=== PATIENT | male | born 1940 | race Caucasian/White ===

== ENCOUNTER 2016-11-01 16:30 | Emergency (ER) | payer MEDICARE, OTHER ==
[2016-11-01 16:43] VITALS: BP 124/74
[2016-11-01] MEDS ORDERED: Sodium Chloride 0.9% 10 ML Syringe FLUSH PRN ×2 (17:06→19:04)
--- NOTE | 2016-11-01 17:14 | EDM.PDOC ---
ED HISTORY OF PRESENT ILLNESS - General Chief Complaint: Chest Pain Stated Complaint: BACK PN, CHEST PN Time Seen by Provider: 11/01/16 16:45 Source of Information: Reports: Patient History Limitations: Reports: No limitations - History of Present Illness INITIAL COMMENTS - FREE TEXT/NARRATIVE: Patient is a 76-year-old male who presents to the ED complaining of sudden onset of mid thoracic back discomfort that radiated into his chest bilaterally described as achy sensation rated 4/10 at its peak. Patient states he was sitting in the recliner when this discomfort occurred. Patient states with onset of discomfort he did not become dizzy, short of breath, diaphoretic, lightheaded, or have radiation of the discomfort up into his neck or arms bilaterally. States symptoms resolved quickly. Patient does not recall any recent activities that could cause discomfort. He has no prior history of similar symptoms. Patient has a history of non-Hodgkin's lymphoma, CLL, DVT, HTN, hypercholestermia, and prostate CA. Patient is currently taking imbruvica an kinase inhibitor for NHL and CLL. Timing/Duration: Reports: Resolved prior to arrival Severity: mild Location, General: Reports: chest, back Quality: Reports: Ache Improves with: Reports: None Worsens with: Reports: None Context, General: Reports: Other (none stated) Associated Symptoms (General): Reports: chest pain, loss of appetite, rash ( petechial rash over his whole body. ). 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) (none stated) - Related Data Allergies/ADRs: Allergies Allergy/AdvReac Type Severity Reaction Status Date / Time bendamustine Allergy Anaphylactic Verified 03/28/16 10:55 Shock Penicillins Allergy Hives Verified 03/28/16 10:55 Home Meds: Home Meds Allopurinol [Zyloprim] 300 mg PO DAILY 11/01/16 [History] Doxycycline Hyclate 100 mg PO BID 11/01/16 [History] Escitalopram [Lexapro] 20 mg PO DAILY 11/01/16 [History] Mupirocin Cream [Bactroban Crm] 1 applic TRDERM BID 11/01/16 [History] Omeprazole 20 mg PO DAILY 11/01/16 [History] Ondansetron HCl [Zofran] 8 mg PO TID PRN 11/01/16 [History] Prednisone [IJD: Prednisone] 5 mg PO DAILY 11/01/16 [History] Tobramycin Sulf/Dexamethasone [IJP: Tobradex Ophth Susp] 5 ml EYEBOTH .EVERY 4 HOURS 11/01/16 [History] Past Medical History Gastrointestinal History: Reports: Hemorrhoids Genitourinary History: Reports: Other (see below) Other Genitourinary History: prostrate removed because of cancer Musculoskeletal History: Reports: Gout, Other (see below) Other Musculoskeletal History: 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; pt is unaware of this Psychiatric History: Reports: Depression Oncologic (Cancer) History: Reports: Non-Hodgkin's Lymphoma - Infectious Disease History Infectious Disease History: Reports: MRSA - Past Surgical History HEENT Surgical History: Reports: Cataract surgery GI Surgical History: Reports: Cholecystectomy Social & Family History - Tobacco Use Smoking Status *Q: Former Smoker Month Tobacco Last Used: 25 yrs Second Hand Smoke Exposure: No - Caffeine Use Caffeine Use: Reports: Coffee - Alcohol Use Days Per Week of Alcohol Use: 0 - Recreational Drug Use Recreational Drug Use: No ED ROS GENERAL - Review of Systems Review Of Systems: See Below Constitutional: Reports: malaise, fatigue, decreased appetite. Denies: fever, chills, weakness HEENT: Reports: No symptoms Respiratory: Denies: shortness of breath, cough, sputum Cardiovascular: Denies: Chest pain, Dyspnea on exertion, Edema, Lightheadedness , Orthopnea, Palpitations, PND, Syncope GI/Abdominal: Denies: Abdominal pain, Black stool, Bloody stool, Constipation, Diarrhea, Decreased appetite, Distension, Hematemesis, Hematochezia, Melena, Nausea, Vomiting : Denies: discharge, dysuria, flank pain, frequency, hematuria, pain, urgency , urinary retention Musculoskeletal: Reports: back pain Skin: Reports: rash (Petechial rash over his body) Neurological: Reports: no symptoms ED EXAM, GENERAL - Physical Exam Exam: See Below Exam Limited By: No limitations General Appearance: alert, WD/WN, no apparent distress Eye Exam: bilateral eye: EOMI, PERRL Ears: hearing grossly normal Nose: normal inspection, normal mucosa, no blood Throat/Mouth: Normal inspection, Normal oropharynx, Normal voice, No airway compromise Neck: normal inspection, supple Respiratory/Chest: no respiratory distress, lungs clear, normal breath sounds, no accessory muscle use, chest non-tender Cardiovascular: normal peripheral pulses, regular rate, rhythm, no murmur Peripheral Pulses: 2+: radial (L) GI/Abdominal: normal bowel sounds, soft, non tender, no organomegaly, no distention, no abnormal bruit, no mass Back Exam: normal inspection, full range of motion. No: CVA tenderness (L), CVA tenderness (R) Extremities: normal inspection, non-tender, no pedal edema Neurological: alert, oriented, CN II-XII intact, normal cognition, no motor/ sensory deficits Psychiatric: normal affect, normal mood Skin Exam: Warm, Dry, Intact, Normal color, Petechiae (Over his whole body) Course - Vital Signs Last Recorded V/S: Last Vital Signs Temp 97.2 F 11/01/16 16:41 Pulse 68 11/01/16 16:41 Resp 14 11/01/16 16:41 BP 124/74 11/01/16 16:41 Pulse Ox 93 L 11/01/16 16:41 - Orders/Labs/Meds Orders: Active Orders 24 hr Category Date Time Status EKG Documentation Completion [RC] STAT Care 11/01/16 17:05 Active Peripheral IV Care [RC] . DIRECTED Care 11/01/16 17:06 Active Chest 1V Frontal [CR] Stat Exams 11/01/16 17:05 Taken Sodium Chloride 0.9% [Normal Saline] 1,000 ml Med 11/01/16 17:15 Active IV ASDIRECTED Sodium Chloride 0.9% [Normal Saline] 100 ml Med 11/01/16 19:15 Active IV ASDIRECTED Sodium Chloride 0.9% [Saline Flush] Med 11/01/16 17:06 Active 10 ml FLUSH ASDIRECTED PRN Sodium Chloride 0.9% [Saline Flush] Med 11/01/16 19:04 Active 10 ml FLUSH ONETIME PRN Peripheral IV Insertion Adult [OM.PC] Stat Oth 11/01/16 17:06 Ordered Medication Orders Sodium Chloride (Normal Saline) 1,000 mls @ 75 mls/hr IV ASDIRECTED [facility] Last Admin: 11/01/16 17:57 Dose: 75 mls/hr Sodium Chloride (Normal Saline) 100 mls @ 65 mls/hr IV ASDIRECTED CARMEN Last Admin: 11/01/16 19:58 Dose: 65 mls/hr Sodium Chloride (Saline Flush) 10 ml FLUSH ASDIRECTED PRN PRN Reason: Keep Vein Open Last Admin: 11/01/16 17:45 Dose: 10 ml Sodium Chloride (Saline Flush) 10 ml FLUSH ONETIME PRN PRN Reason: IV FLUSH Last Admin: 11/01/16 19:48 Dose: 10 ml Labs: Laboratory Tests 11/01/16 11/01/16 11/01/16 Range/Units 17:53 17:53 17:53 WBC 3.63 L (4.23-9.07) K/mm3 RBC 3.05 L (4.63-6.08) M/mm3 Hgb 9.9 L (13.7-17.5) gm/L Hct 31.1 L (40.1-51.0) % MCV 102.0 H (79.0-92.2) fl MCH 32.5 H (25.7-32.2) pg MCHC 31.8 L (32.2-35.5) g/dl RDW Std Deviation 52.2 H (35.1-43.9) fL Plt Count 44 L (163-337) K/mm3 MPV 12.0 (9.4-12.3) fl Neut % (Auto) 32.8 L (34.0-67.9) % Lymph % (Auto) 56.5 H (21.8-53.1) % [place] % (Auto) 8.5 (5.3-12.2) % Eos % (Auto) 0.8 (0.8-7.0) Baso % (Auto) 1.1 (0.1-1.2) % Neut # 1.19 L (1.78-5.38) K/mm3 Lymph # 2.05 (1.32-3.57) K/mm3 [place] # 0.31 (0.30-0.82) K/mm3 Eos # 0.03 L (0.04-0.54) K/mm3 Baso # 0.04 (0.01-0.08) K/mm3 Manual Slide Review Abnormal smear PT 11.7 (8.0-13.0) SECONDS INR 1.07 APTT (22-36) SECONDS D-Dimer, Quantitative (0.19-0.59) mg/L Sodium 143 (136-145) mEq/L Potassium 4.3 (3.5-5.1) mEq/L Chloride 108 H (98-107) mEq/L Carbon Dioxide 31 (21-32) mEq/L Anion Gap 8.3 (5-15) BUN 15 (7-18) mg/dL Creatinine 1.3 (0.7-1.3) mg/dL Est Cr Clr Drug Dosing 53.10 mL/min Estimated GFR (MDRD) 54 (>60) mL/min BUN/Creatinine Ratio 11.5 L (14-18) Glucose 93 (83-115) mg/dL Calcium 8.3 L (8.5-10.1) mg/dL Total Bilirubin 0.8 (0.2-1.0) mg/dL AST 20 (15-37) U/L ALT 12 L (16-63) U/L Alkaline Phosphatase 39 L (46-116) U/L Troponin I < 0.017 (0.00-0.056) ng/mL C-Reactive Protein < 0.2 (<1.0) mg/dL Total Protein 5.5 L (6.4-8.2) g/dl Albumin 2.9 L (3.4-5.0) g/dl Globulin 2.6 gm/dL Albumin/Globulin Ratio 1.1 (1-2) 11/01/16 Range/Units 17:53 WBC (4.23-9.07) K/mm3 RBC (4.63-6.08) M/mm3 Hgb (13.7-17.5) gm/L Hct (40.1-51.0) % MCV (79.0-92.2) fl MCH (25.7-32.2) pg MCHC (32.2-35.5) g/dl RDW Std Deviation (35.1-43.9) fL Plt Count (163-337) K/mm3 MPV (9.4-12.3) fl Neut % (Auto) (34.0-67.9) % Lymph % (Auto) (21.8-53.1) % [place] % (Auto) (5.3-12.2) % Eos % (Auto) (0.8-7.0) Baso % (Auto) (0.1-1.2) % Neut # (1.78-5.38) K/mm3 Lymph # (1.32-3.57) K/mm3 [place] # (0.30-0.82) K/mm3 Eos # (0.04-0.54) K/mm3 Baso # (0.01-0.08) K/mm3 Manual Slide Review PT (8.0-13.0) SECONDS INR APTT 28 (22-36) SECONDS D-Dimer, Quantitative 2.92 H (0.19-0.59) mg/L Sodium (136-145) mEq/L Potassium (3.5-5.1) mEq/L Chloride (98-107) mEq/L Carbon Dioxide (21-32) mEq/L Anion Gap (5-15) BUN (7-18) mg/dL Creatinine (0.7-1.3) mg/dL Est Cr Clr Drug Dosing mL/min Estimated GFR (MDRD) (>60) mL/min BUN/Creatinine Ratio (14-18) Glucose (83-115) mg/dL Calcium (8.5-10.1) mg/dL Total Bilirubin (0.2-1.0) mg/dL AST (15-37) U/L ALT (16-63) U/L Alkaline Phosphatase (46-116) U/L Troponin I (0.00-0.056) ng/mL C-Reactive Protein (<1.0) mg/dL Total Protein (6.4-8.2) g/dl Albumin (3.4-5.0) g/dl Globulin gm/dL Albumin/Globulin Ratio (1-2) Meds: Medications Generic Name Dose Route Start Last Admin Trade Name Freq PRN Reason Stop Dose Admin Sodium Chloride 1,000 mls @ 75 mls/hr 11/01/16 17:15 11/01/16 17:57 Normal Saline IV 75 mls/hr ASDIRECTED CARMEN Administration Sodium Chloride 100 mls @ 65 mls/hr 11/01/16 19:15 11/01/16 19:58 Normal Saline IV 65 mls/hr ASDIRECTED CARMEN Administration Sodium Chloride 10 ml 11/01/16 17:06 11/01/16 17:45 Saline Flush FLUSH 10 ml ASDIRECTED PRN Administration Keep Vein Open Sodium Chloride 10 ml 11/01/16 19:04 11/01/16 19:48 Saline Flush FLUSH 10 ml ONETIME PRN Administration IV FLUSH Discontinued Medications Generic Name Dose Route Start Last Admin Trade Name [place] PRN Reason Stop Dose Admin Sodium Chloride 500 mls @ 999 mls/hr 11/01/16 18:38 Normal Saline IV 11/01/16 19:08 .BOLUS ONE Iopamidol 100 ml 11/01/16 19:04 11/01/16 19:48 Isovue-370 (76%) IVPUSH 11/01/16 19:05 100 ml ONETIME ONE Administration Iopamidol 50 ml 11/01/16 19:04 11/01/16 19:48 Isovue-370 (76%) IVPUSH 11/01/16 19:05 50 ml ONETIME ONE Administration - Re-Assessments/Exams Free Text/Narrative Re-Assessment/Exam: Ordered peripheral IV with NS. Initial labs and studies include: CBC, C14, CRP , troponin, d-dimer, PT/INR, PTT, EKG, and CXR. Will hold off on administering ASA since patient has history of thrombocytopenia. 11/01/16 18:38 CXR reviewed: Cardiomegaly, no obvious pulmonary infiltrates, increased pulmonary vascularization, or acute findings noted. Final interpretation is pending. D-dimer is elevated at 2.92. Ordered a CT angios chest per PE protocol. Will increase IV fluid rate to 500ml/hr with current Cr 1.3. Labs reviewed sodium 143, potassium 4.3, cr 1.3, troponin less than 0.017, CRP is within normal limits, d-dimer is 2.92, PT/INR and PTT within normal limits, white blood cell count is 3.63, hemoglobin is 9.9, platelets are 44. Discussed results of labs and studies with patient and spouse. They had no additional questions or concerns and agreed with plan. 11/01/16 19:13 11/01/16 20:28 CT of the chest impression: Spleen is larger than on prior chest CT of December 02, 2015. Small to moderate size right-sided pleural effusion. Stable axillary lymph nodes. Decrease adenopathy within the right hilar region from prior study. No prior findings of pulmonary embolism are seen. Mild basilar atelectasis. Etiology of back/chest discomfort sullen more pattern musculoskeletal in nature that resolved with admission to the ED. Will discharge patient home with instructions as documented. 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 CT of the chest did not reveal any findings concerning for pulmonary embolism. Spleen is larger than on prior chest CT of December 02, 2015. Small to moderate size right-sided pleural effusion. Stable axillary lymph nodes. Decrease adenopathy within the right hilar region from prior study. Suspect etiology of pain is musculoskeletal in nature. Utilize warm compresses to the affected area with gentle massage if the occurs again. Please follow up with her oncologist as scheduled in the next 2 weeks to discuss the labs results listed above. Return back to the ED as needed for any new or worsening symptoms as discussed. - My Orders Last 24 Hours: My Active Orders 11/01/16 17:05 EKG Documentation Completion [RC] STAT Chest 1V Frontal [CR] Stat 11/01/16 17:06 Peripheral IV Care [RC] . DIRECTED Sodium Chloride 0.9% [Saline Flush] 10 ml FLUSH ASDIRECTED PRN Peripheral IV Insertion Adult [OM.PC] Stat 11/01/16 17:15 Sodium Chloride 0.9% [Normal Saline] 1,000 ml IV ASDIRECTED 11/01/16 19:04 Sodium Chloride 0.9% [Saline Flush] 10 ml FLUSH ONETIME PRN 11/01/16 19:15 Sodium Chloride 0.9% [Normal Saline] 100 ml IV ASDIRECTED - Assessment/Plan Last 24 Hours: My Active Orders 11/01/16 17:05 EKG Documentation Completion [RC] STAT Chest 1V Frontal [CR] Stat 11/01/16 17:06 Peripheral IV Care [RC] . DIRECTED Sodium Chloride 0.9% [Saline Flush] 10 ml FLUSH ASDIRECTED PRN Peripheral IV Insertion Adult [OM.PC] Stat 11/01/16 17:15 Sodium Chloride 0.9% [Normal Saline] 1,000 ml IV ASDIRECTED 11/01/16 19:04 Sodium Chloride 0.9% [Saline Flush] 10 ml FLUSH ONETIME PRN 11/01/16 19:15 Sodium Chloride 0.9% [Normal Saline] 100 ml IV ASDIRECTED
[2016-11-01] MEDS ORDERED: Sodium Chloride 0.9% 1,000 ML IV SCH (17:15)
[2016-11-01] MEDS ORDERED: Sodium Chloride 0.9% 500 ML IV ONE (18:38)
[2016-11-01] MEDS ORDERED: Iopamidol 755 Mg/ML 100 ML Bottle IVPUSH ONE (19:04)
[2016-11-01] MEDS ORDERED: Iopamidol 755 MG/ML 50 ML Bottle IVPUSH ONE (19:04)
[2016-11-01] MEDS ORDERED: Sodium Chloride 0.9% 100 ML IV SCH (19:15)
--- NOTE | 2016-11-01 20:23 | CT ---
CT chest Technique: Multiple axial sections through the chest were obtained. Intravenous contrast was utilized. Study performed as a pulmonary angiogram protocol. Comparison: Previous chest CT of 12/02/15. Findings: Pulmonary arteries are well-opacified. No filling defects are seen to indicate pulmonary embolism. Small to moderate size right-sided pleural effusion is seen. Pleural effusion is an interval change from prior exam. Scattered lymph nodes are again seen within both axillary regions which remains stable from prior chest CT. Soft tissue density presumably representing adenopathy on prior study within the right hilar region is less prominent on current study. Mediastinum shows other smaller lymph nodes which are within normal limits at this time. Aorta shows no aneurysmal dilatation. Mild coronary artery calcification is seen. Mild atelectasis is seen within both lung bases. Lungs otherwise appear clear on this exam. Spleen is more prominent than seen on previous study Impression: 1. Spleen is more enlarged than on prior chest CT of 12/02/15. 2. Small to moderate size right sided pleural effusion. 3. Stable axillary lymph nodes. Decreased adenopathy within the right hilar region from prior study. 4. No findings of pulmonary embolism are seen. 5. Mild bibasilar atelectasis. Diagnostic code #3
--- NOTE | 2016-11-02 08:02 | CR ---
Chest: Portable view of the chest was obtained. Comparison: Previous chest x-ray of 09/11/12. Heart size accentuated from portable technique. Tortuous thoracic aorta is seen. Lungs are clear with no acute infiltrates. Bony structures are grossly intact. Impression: 1. Nothing acute is identified on portable chest x-ray. Diagnostic code #1
== END 2016-11-01 21:00 | disposition home or self-care (01) ==
LOC: JD.ED 16:30
DX: R07.89 Other chest pain (principal); R79.1 Abnormal coagulation profile; R23.3 Spontaneous ecchymoses; J90 Pleural effusion, not elsewhere classified; M54.6 Pain in thoracic spine; C85.90 Non-Hodgkin lymphoma, unspecified, unspecified site; C91.10 Chronic lymphocytic leukemia of B-cell type not having achieved remission; D61.810 Antineoplastic chemotherapy induced pancytopenia; I10 Essential (primary) hypertension; E78.00 Pure hypercholesterolemia, unspecified; C61 Malignant neoplasm of prostate; Z86.718 Personal history of other venous thrombosis and embolism; Z88.0 Allergy status to penicillin; Z88.8 Allergy status to other drugs, medicaments and biological substances; Z79.899 Other long term (current) drug therapy; M10.9 Gout, unspecified; F32.9 Major depressive disorder, single episode, unspecified; Z86.14 Personal history of Methicillin resistant Staphylococcus aureus infection; Z87.891 Personal history of nicotine dependence
CPT/HCPCS: 36415; 71010; 71275; 80053; 84484; 85025; 85379; 85610; 85730; 86140; 93005; 96360; 96361; 99285; J7030; J7040; J7050; Q9967

== ENCOUNTER 2017-01-06 19:31 | Emergency (ER) | payer MEDICARE, OTHER ==
[2017-01-06 19:49] VITALS: BP 125/77
--- NOTE | 2017-01-06 21:48 | EDM.PDOC ---
ED HPI GENERAL MEDICAL PROBLEM - General Chief Complaint: Gastrointestinal Problem Stated Complaint: BLOOD WORK Time Seen by Provider: 01/06/17 19:46 Source of Information: Reports: Patient, Provider, RN Notes Reviewed History Limitations: Reports: No Limitations - History of Present Illness INITIAL COMMENTS - FREE TEXT/NARRATIVE: I was notified by a nurse at the infusion center that the patient was being sent to the ED. 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 Apparently the patient's Oncologist, Dr. Dela Cruz, was concerned about an infection. The patient then developed a headache, nausea, and myalgias. This apparently happened a couple of years ago when the patient's Imbruvia was held. The patient has thrombocytopenia - 64K on 01/02/2017, and they were concerned that they may have dropped. They are requesting that we recheck the platelets. The patient's version of events is virtually identical. He reports lightheadedness, nausea, nonbloody diarrhea, and lower extremity myalgias for the past 1 to 2 days. He states that the symptoms are very similar to when he went off Imbruvia in July 2015. No recent fever, vomiting, cough, chest pain, palpitations, or urinary symptoms. He states that he expects to restart the Imbruvia this coming Sunday, 2016. Generalized Pain Score (Numeric/FACES): 4 - Related Data Allergies Allergy/AdvReac Type Severity Reaction Status Date / Time bendamustine Allergy Anaphylactic Verified 01/06/17 19:44 Shock Penicillins Allergy Hives Verified 01/06/17 19:44 Home Meds: Home Meds Allopurinol [Zyloprim] 300 mg PO DAILY 11/01/16 [History] Doxycycline Hyclate 100 mg PO BID 11/01/16 [History] Escitalopram [Lexapro] 20 mg PO DAILY 11/01/16 [History] Mupirocin Cream [Bactroban Crm] 1 applic TRDERM BID 11/01/16 [History] Omeprazole 20 mg PO DAILY 11/01/16 [History] Ondansetron HCl [Zofran] 8 mg PO TID PRN 11/01/16 [History] Prednisone [IJD: Prednisone] 5 mg PO DAILY 11/01/16 [History] Tobramycin Sulf/Dexamethasone [IJP: Tobradex Ophth Susp] 5 ml EYEBOTH .EVERY 4 HOURS 11/01/16 [History] Past Medical History HEENT History: Reports: Cataract, Impaired Vision Other HEENT History: Wears glasses Respiratory History: Reports: Sleep Apnea Gastrointestinal History: Reports: Colon Polyp, Hemorrhoids Musculoskeletal History: Reports: Arthritis, Gout Psychiatric History: Reports: Depression Oncologic (Cancer) History: Reports: Non-Hodgkin's Lymphoma, Prostate - Infectious Disease History Infectious Disease History: Reports: MRSA - Past Surgical History HEENT Surgical History: Reports: Adenoidectomy, Cataract Surgery, Tonsillectomy GI Surgical History: Reports: Cholecystectomy, Colonoscopy, EGD, Polypectomy Male Surgical History: Reports: Prostatectomy Musculoskeletal Surgical History: Reports: Arthroscopic Procedure (right shoulder), Other (See Below) (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) Dermatological Surgical History: Reports: Other (See Below) (Pilonidal cyst) Social & Family History - Tobacco Use Smoking Status *Q: Former Smoker Tobacco Use Within Last Twelve Months: No Years of Tobacco use: 32 Packs/Tins Daily: 1 Used Tobacco, but Quit: Yes Month Tobacco Last Used: Quit 1994 Second Hand Smoke Exposure: No - Caffeine Use Caffeine Use: Reports: Coffee - Alcohol Use Alcohol Use History: Yes Alcohol Use Frequency: Socially - Recreational Drug Use Recreational Drug Use: No - Living Situation & Occupation Living situation: Reports: , with Spouse Occupation: Retired ED ROS GENERAL - Review of Systems Review Of Systems: See Below Constitutional: Reports: No Symptoms HEENT: Reports: No Symptoms Respiratory: Reports: No Symptoms Cardiovascular: Reports: No Symptoms Endocrine: Reports: No Symptoms GI/Abdominal: Reports: No Symptoms : Reports: No Symptoms Musculoskeletal: Reports: No Symptoms Skin: Reports: No Symptoms Neurological: Reports: No Symptoms Psychiatric: Reports: No Symptoms Hematologic/Lymphatic: Reports: No Symptoms Immunologic: Reports: No Symptoms ED EXAM, GENERAL - Physical Exam Exam: See Below Exam Limited By: No Limitations General Appearance: Alert, WD/WN, No Apparent Distress Eye Exam: Bilateral Eye: Normal Inspection Ears: Normal External Exam, Hearing Grossly Normal Ear Exam: Bilateral Ear: Auricle Normal Nose: Normal Inspection, No Blood Throat/Mouth: Normal Inspection, Normal Lips, Normal Voice, No Airway Compromise Head: Atraumatic, Normocephalic Neck: Normal Inspection, Full Range of Motion Respiratory/Chest: No Respiratory Distress, Lungs Clear, Normal Breath Sounds, No Accessory Muscle Use Cardiovascular: Normal Peripheral Pulses, Regular Rate, Rhythm, No Gallop, No JVD, No Murmur, No Rub Peripheral Pulses: 4+: Radial (L), Radial (R) GI/Abdominal: Normal Bowel Sounds, Soft, Non-Tender, No Organomegaly, No Distention, No Abnormal Bruit, No Mass (Male) Exam: Deferred Rectal (Males) Exam: Deferred Back Exam: Normal Inspection, Full Range of Motion, NT Extremities: Normal Inspection, Normal Range of Motion, No Pedal Edema, Normal Capillary Refill Neurological: Alert, Oriented, Normal Cognition, No Motor/Sensory Deficits Psychiatric: Normal Affect Skin Exam: Warm, Dry, Intact, Normal Color, No Rash, Ecchymosis (few, scattered on upper extremities) Lymphatic: No Adenopathy Course - Vital Signs Last Recorded V/S: Last Vital Signs Temp 37.5 C 01/06/17 19:44 Pulse 94 01/06/17 19:44 Resp 15 01/06/17 19:44 BP 125/77 01/06/17 19:44 Pulse Ox 96 01/06/17 19:44 - Orders/Labs/Meds Labs: Laboratory Tests 01/06/17 01/06/17 01/06/17 Range/Units 20:10 20:10 20:10 WBC 4.38 (4.23-9.07) K/mm3 RBC 3.52 L (4.63-6.08) M/mm3 Hgb 10.8 L (13.7-17.5) gm/L Hct 33.9 L (40.1-51.0) % MCV 96.3 H (79.0-92.2) fl MCH 30.7 (25.7-32.2) pg MCHC 31.9 L (32.2-35.5) g/dl RDW Std Deviation 43.6 (35.1-43.9) fL Plt Count 65 L (163-337) K/mm3 MPV 11.4 (9.4-12.3) fl Neutrophils % (Manual) 27 L (40-60) % Band Neutrophils % 34 H (0-10) % Lymphocytes % (Manual) 21 (20-40) % Atypical Lymphs % 0 % Monocytes % (Manual) 13 H (2-10) % Eosinophils % (Manual) 3 (0.8-7.0) % Basophils % (Manual) 2 H (0.2-1.2) Platelet Estimate Decreased Plt Morphology Comment Normal Anisocytosis 1+ slight RBC Morph Comment Not Reportable PT 11.8 (8.0-13.0) SECONDS INR 1.08 APTT 30 (22-36) SECONDS Sodium 143 (136-145) mEq/L Potassium 4.3 (3.5-5.1) mEq/L Chloride 109 H (98-107) mEq/L Carbon Dioxide 28 (21-32) mEq/L Anion Gap 10.3 (5-15) BUN 15 (7-18) mg/dL Creatinine 1.5 H (0.7-1.3) mg/dL Est Cr Clr Drug Dosing 46.02 mL/min Estimated GFR (MDRD) 46 (>60) mL/min BUN/Creatinine Ratio 10.0 L (14-18) Glucose 108 (83-115) mg/dL Calcium 8.3 L (8.5-10.1) mg/dL Total Bilirubin 0.7 (0.2-1.0) mg/dL AST 16 (15-37) U/L ALT 6 L (16-63) U/L Alkaline Phosphatase 53 (46-116) U/L Total Protein 6.2 L (6.4-8.2) g/dl Albumin 3.2 L (3.4-5.0) g/dl Globulin 3.0 gm/dL Albumin/Globulin Ratio 1.1 (1-2) - Re-Assessments/Exams Free Text/Narrative Re-Assessment/Exam: 01/06/17 21:53 Test results discussed with the patient. There was concern about severe thrombocytopenia, however, the patient's platelets are normal, for him, at 65, 000, and the remainder of his CBC, CMP, and coags are unremarkable. I attempted to contact the patient's Oncologist, Dr. Dela Cruz, however, there was no answer at her phone. The patient states that he feels well enough to go home, and he will followup with Dr. Dela Cruz. 01/06/17 22:12 Dr. Dela Cruz called, and the patient's case was discussed. She agrees with the workup and the discharge home. She will contact the patient on Sunday. Departure - Departure Time of Disposition: 21:58 Disposition: Home, Self-Care 01 Condition: fair Clinical Impression: Malaise - Discharge Information Instructions: Fatigue Referrals: Aranza Dela Cruz MD [Primary Care Provider] - Forms: ED Department Discharge Additional Instructions: You were seen in the emergency room for lightheadedness, nausea, diarrhea, and lower extremity muscle aches for the past 2 days, possibly related to your discontinuation of Imbruvica. Workup in the ER included a CBC, CMP, and coags. Your workup was unremarkable. You're not significantly anemic. Your platelets are stable at 65,000. Your electrolytes are normal, although your creatinine is slightly elevated at 1.5. Your case was discussed with your Oncologist, Dr. Dela Cruz. She will contact you on Sunday. If any other problems, please do not hesitate to return to the ER.
== END 2017-01-06 22:11 | disposition home or self-care (01) ==
LOC: JD.ED 19:31
DX: R53.81 Other malaise (principal); F32.9 Major depressive disorder, single episode, unspecified; M19.90 Unspecified osteoarthritis, unspecified site; M10.9 Gout, unspecified; Z88.0 Allergy status to penicillin; Z88.8 Allergy status to other drugs, medicaments and biological substances; Z79.899 Other long term (current) drug therapy; Z90.49 Acquired absence of other specified parts of digestive tract; Z87.891 Personal history of nicotine dependence; Z98.49 Cataract extraction status, unspecified eye; Z98.890 Other specified postprocedural states
CPT/HCPCS: 36415; 80053; 85025; 85610; 85730; 99284; 99285

== ENCOUNTER 2017-12-01 09:42 | Emergency (ER) | payer MEDICARE, OTHER ==
[2017-12-01 10:38] VITALS: BP 169/84
[2017-12-01] MEDS ORDERED: Ketorolac 30 MG/ML SDV IVPUSH ONE (10:41)
[2017-12-01] MEDS ORDERED: Sodium Chloride 0.9% 1,000 ML IV ONE (10:41)
[2017-12-01] MEDS ORDERED: Sodium Chloride 0.9% 10 ML Syringe FLUSH PRN (10:41)
--- NOTE | 2017-12-01 11:26 | EDM.PDOC ---
ED HPI GENERAL MEDICAL PROBLEM - General Chief Complaint: Genitourinary Problem Stated Complaint: BACK PAIN KIDNEY PAIN Time Seen by Provider: 12/01/17 10:41 Source of Information: Reports: Patient History Limitations: Reports: No Limitations - History of Present Illness INITIAL COMMENTS - FREE TEXT/NARRATIVE: 77 y/o M with R flank pain. Woke him from sleep around 3am. Located in R flank area. Some radiation around to the front of the abdomen. pain was initially severe. It is mild now. Took tylenol this AM. No dysuria/hematuria/difficulty urinating. No nausea/vomiting. No diarrhea/constipation. No fever. No hx of similar symptoms previously. No recent illness. No injury. Right Upper Flank Pain Score (Numeric/FACES): 6 - Related Data Allergies Allergy/AdvReac Type Severity Reaction Status Date / Time bendamustine Allergy Anaphylactic Verified 12/01/17 10:38 Shock Penicillins Allergy Hives Verified 12/01/17 10:38 Home Meds: Home Meds Escitalopram [Lexapro] 20 mg PO DAILY 11/01/16 [History] Mupirocin Cream [Bactroban Crm] 1 applic TRDERM BID 11/01/16 [History] Omeprazole 20 mg PO DAILY 11/01/16 [History] Tobramycin Sulf/Dexamethasone [IJP: Tobradex Ophth Susp] 5 ml EYEBOTH .EVERY 4 HOURS 11/01/16 [History] Cholecalciferol (Vitamin D3) [Vitamin D3] 1 tab PO DAILY 12/01/17 [History] Docusate Sodium [Stool Softener] 1 tab PO DAILY 12/01/17 [History] Ibrutinib [Imbruvica] 420 mg PO DAILY 12/01/17 [History] Ubidecarenone [COQ-10] 1 tab PO DAILY 12/01/17 [History] oxyCODONE 5 mg PO QID PRN #15 tab 12/01/17 [Rx] Past Medical History HEENT History: Reports: Cataract, Impaired Vision Other HEENT History: Wears glasses Cardiovascular History: Reports: Blood Clots/VTE/DVT Respiratory History: Reports: Sleep Apnea Gastrointestinal History: Reports: Colon Polyp, Hemorrhoids Genitourinary History: Reports: Other (See Below) Other Genitourinary History: Prostatectomy Musculoskeletal History: Reports: Arthritis, Gout Other Musculoskeletal History: 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; pt is unaware of this Psychiatric History: Reports: Depression Oncologic (Cancer) History: Reports: Non-Hodgkin's Lymphoma, Prostate Dermatologic History: Reports: Other (See Below) Other Dermatologic History: follicultis - Infectious Disease History Infectious Disease History: Reports: MRSA - Past Surgical History HEENT Surgical History: Reports: Adenoidectomy, Cataract Surgery, Tonsillectomy GI Surgical History: Reports: Cholecystectomy, Colonoscopy, EGD, Polypectomy Male Surgical History: Reports: Prostatectomy Musculoskeletal Surgical History: Reports: Arthroscopic Procedure, Other (See Below) Dermatological Surgical History: Reports: Other (See Below) Social & Family History - Family History Family Medical History: Noncontributory - Tobacco Use Smoking Status *Q: Former Smoker Years of Tobacco use: 32 Packs/Tins Daily: 1 Used Tobacco, but Quit: Yes Month/Year Tobacco Last Used: unk Second Hand Smoke Exposure: No - Caffeine Use Caffeine Use: Reports: Coffee - Alcohol Use Days Per Week of Alcohol Use: 3 Number of Drinks Per Day: 1 Total Drinks Per Week: 3 - Recreational Drug Use Recreational Drug Use: No - Living Situation & Occupation Living situation: Reports: , with Spouse Occupation: Retired ED ROS GENERAL - Review of Systems Review Of Systems: See Below Constitutional: Denies: Fever HEENT: Reports: No Symptoms Respiratory: Denies: Shortness of Breath, Cough Cardiovascular: Denies: Chest Pain Endocrine: Reports: No Symptoms GI/Abdominal: Reports: Abdominal Pain : Reports: Flank Pain. Denies: Dysuria, Hematuria ED EXAM, RENAL/ - Physical Exam Exam: See Below Exam Limited By: No Limitations General Appearance: Alert, WD/WN, No Apparent Distress Eye Exam: Bilateral Eye: Normal Inspection Ears: Normal External Exam Nose: Normal Inspection Throat/Mouth: Normal Inspection, Normal Voice, No Airway Compromise Head: Atraumatic, Normocephalic Neck: Normal Inspection, Supple, Non-Tender, Full Range of Motion Respiratory/Chest: No Respiratory Distress, Lungs Clear, Normal Breath Sounds, Chest Non-Tender Cardiovascular: Normal Peripheral Pulses, Regular Rate, Rhythm, No Murmur GI/Abdominal: Soft, Non-Tender, No Distention. No: Rebound Back Exam: Normal Inspection, CVA Tenderness (R) (mild). No: CVA Tenderness (L) Extremities: Normal Inspection Neurological: Alert, Oriented, Normal Cognition, No Motor/Sensory Deficits Psychiatric: Normal Affect, Normal Mood Skin Exam: Warm, Dry, Intact, Normal Color, No Rash Course - Vital Signs Last Recorded V/S: Last Vital Signs Temp 36.4 C 12/01/17 10:34 Pulse 62 12/01/17 10:34 Resp 16 12/01/17 10:34 BP 169/84 H 12/01/17 10:34 Pulse Ox 95 12/01/17 10:34 - Orders/Labs/Meds Orders: Active Orders 24 hr Category Date Time Status Peripheral IV Care [RC] . DIRECTED Care 12/01/17 10:41 Active Peripheral IV Care [RC] . DIRECTED Care 12/01/17 10:41 Active UA W/MICROSCOPIC [URIN] Stat Lab 12/01/17 10:50 Ordered Peripheral IV Insertion Adult [OM.PC] Routine Oth 12/01/17 10:41 Ordered Labs: Laboratory Tests 12/01/17 12/01/17 12/01/17 Range/Units 10:50 11:02 11:02 WBC 8.07 (4.23-9.07) K/mm3 RBC 4.53 L (4.63-6.08) M/mm3 Hgb 12.8 L (13.7-17.5) gm/L Hct 39.6 L (40.1-51.0) % MCV 87.4 (79.0-92.2) fl MCH 28.3 (25.7-32.2) pg MCHC 32.3 (32.2-35.5) g/dl RDW Std Deviation 45.6 H (35.1-43.9) fL Plt Count 128 L (163-337) K/mm3 MPV 12.1 (9.4-12.3) fl Neut % (Auto) 68.9 H (34.0-67.9) % Lymph % (Auto) 17.6 L (21.8-53.1) % [place] % (Auto) 11.3 (5.3-12.2) % Eos % (Auto) 1.1 (0.8-7.0) Baso % (Auto) 1.0 (0.1-1.2) % Neut # (Auto) 5.56 H (1.78-5.38) K/mm3 Lymph # (Auto) 1.42 (1.32-3.57) K/mm3 [place] # (Auto) 0.91 H (0.30-0.82) K/mm3 Eos # (Auto) 0.09 (0.04-0.54) K/mm3 Baso # (Auto) 0.08 (0.01-0.08) K/mm3 Sodium 143 (136-145) mEq/L Potassium 4.0 (3.5-5.1) mEq/L Chloride 108 H (98-107) mEq/L Carbon Dioxide 27 (21-32) mEq/L Anion Gap 12.0 (5-15) BUN 22 H (7-18) mg/dL Creatinine 1.3 (0.7-1.3) mg/dL Est Cr Clr Drug Dosing TNP Estimated GFR (MDRD) 54 (>60) mL/min BUN/Creatinine Ratio 16.9 (14-18) Glucose 112 (83-115) mg/dL Calcium 8.4 L (8.5-10.1) mg/dL Total Bilirubin 0.5 (0.2-1.0) mg/dL AST 13 L (15-37) U/L ALT 11 L (16-63) U/L Alkaline Phosphatase 59 (46-116) U/L Total Protein 6.3 L (6.4-8.2) g/dl Albumin 3.5 (3.4-5.0) g/dl Globulin 2.8 gm/dL Albumin/Globulin Ratio 1.3 (1-2) Urine Color Yellow (Yellow) Urine Appearance Clear (Clear) Urine pH 6.0 (5.0-8.0) Ur Specific [place] > or = 1.030 (1.005-1.030) Urine Protein Trace H (Negative) Urine Glucose (UA) Negative (Negative) Urine Ketones Negative (Negative) Urine Occult Blood 2+ H (Negative) Urine Nitrite Negative (Negative) Urine Bilirubin Negative (Negative) Urine Urobilinogen 0.2 (0.2-1.0) Ur Leukocyte Esterase Negative (Negative) Urine RBC 5-10 H (0-5) /hpf Urine WBC 0-5 (0-5) /hpf Ur Epithelial Cells 0-5 (0-5) /hpf Urine Bacteria Not seen (FEW) /hpf Urine Mucus Few (FEW) /hpf Meds: Medications Discontinued Medications Generic Name Dose Route Start Last Admin Trade Name Westley PRN Reason Stop Dose Admin Sodium Chloride 1,000 mls @ 1,000 mls/hr 12/01/17 10:41 12/01/17 11:06 Normal Saline IV 12/01/17 11:40 1,000 mls/hr ONETIME ONE Administration Ketorolac Tromethamine 30 mg 12/01/17 10:41 12/01/17 11:06 Toradol IVPUSH 12/01/17 10:42 30 mg ONETIME ONE Administration Sodium Chloride 10 ml 12/01/17 10:41 12/01/17 11:07 Saline Flush FLUSH 10 ml ASDIRECTED PRN Administration Keep Vein Open - Re-Assessments/Exams Free Text/Narrative Re-Assessment/Exam: 12/01/17 16:56 UA shows hematuria, no infection. CBC/chem normal. CT a/p shows 4.3 obstructing stone at the R UVJ. He is feeling much better, suspect he may have passed the stone. Discussed return precautions. Departure - Departure Time of Disposition: 12:42 Disposition: Home, Self-Care 01 Clinical Impression: Ureterolithiasis - Discharge Information Prescriptions: oxyCODONE 5 mg PO QID PRN #15 tab PRN Reason: Pain Instructions: Kidney Stones Referrals: Irene Sales PA-C [Primary Care Provider] - Forms: ED Department Discharge Additional Instructions: 1. Take acetaminophen (Tylenol) as needed for pain 2. Take oxycodone as needed for severe pain. No driving while taking oxycodone - it could make you sleepy or confused 3. Follow up with your primary doctor this week if you still have pain. They can refer you to see a urologist if you haven't passed the stone by then. 4. Return to the ED if you have severe pain, vomiting, fever, difficulty urinating, or any other concerning symptoms. - My Orders Last 24 Hours: My Active Orders 12/01/17 10:41 Peripheral IV Care [RC] . DIRECTED Peripheral IV Care [RC] . DIRECTED Peripheral IV Insertion Adult [OM.PC] Routine 12/01/17 10:50 UA W/MICROSCOPIC [URIN] Stat - Assessment/Plan Last 24 Hours: My Active Orders 12/01/17 10:41 Peripheral IV Care [RC] . DIRECTED Peripheral IV Care [RC] . DIRECTED Peripheral IV Insertion Adult [OM.PC] Routine 12/01/17 10:50 UA W/MICROSCOPIC [URIN] Stat
--- NOTE | 2017-12-01 12:30 | CT ---
CT abdomen and pelvis Technique: Multiple axial sections were obtained from above the dome of the diaphragm inferiorly through the pubic symphysis. Intravenous and oral contrast was not utilized. Study has been performed as a ureteral stone protocol. Comparison: Prior CT abdomen and pelvis study performed as a contrast exam dated 12/02/15. Findings: Right ureter is mildly prominent in size. This finding is caused by an obstructing stone within the distal right ureter at the UVJ measuring about 4.3 mm. Surgical clips are seen within the lower pelvis around the bladder. Previous prostatectomy appears to have been performed. No abnormal calcifications are seen within the kidneys. Visualized lung bases shows nothing acute. Noncontrast appearance of the liver and spleen appears within normal limits. Adrenal glands show no nodule. Pancreas is within normal limits. Surgical clips are seen from prior cholecystectomy. Numerous lymph nodes are seen within the retroperitoneum and within the mesentery which appear fairly stable from previous exam. Aorta shows atherosclerotic change which continues into the iliac vessels without aneurysm. No pelvic mass or adenopathy is seen. Bone window settings were reviewed which shows scattered degenerative change within the spine. Impression: 1. Adenopathy within the retroperitoneum and mesentery which appears fairly stable from previous CT abdomen and pelvis exam. 2. Mildly prominent right ureter which is caused by an obstructing stone within the distal right ureter at the UVJ. This obstructing stone measures approximately 4.3 mm. 3. Other incidental findings as noted above. Diagnostic code #3
== END 2017-12-01 13:00 | disposition home or self-care (01) ==
LOC: JD.ED 09:42
DX: N20.1 Calculus of ureter (principal); Z88.0 Allergy status to penicillin; Z88.8 Allergy status to other drugs, medicaments and biological substances; Z79.899 Other long term (current) drug therapy; Z87.891 Personal history of nicotine dependence
CPT/HCPCS: 36415; 74176; 80053; 81001; 85025; 96361; 96374; 99284; J1885; J7040; J7050

== ENCOUNTER 2022-04-27 17:26 | Emergency (ER) | payer BC ==
[2022-04-27 17:37] VITALS: BP 115/71; PULSE 85
[2022-04-27] MEDS ORDERED: Sodium Chloride 0.9% 10 ML Syringe FLUSH PRN ×2 (18:15→20:40)
[2022-04-27] MEDS ORDERED: Iopamidol 755 Mg/ML 100 ML Bottle IVPUSH ONE (20:40)
[2022-04-27] MEDS ORDERED: Sodium Chloride 0.9% 100 ML IV SCH (20:45)
[2022-04-27] MEDS ORDERED: cefTRIAXone 1 GM in Sodium Chloride 0.9% 100 ML IV ONE (22:37)
[2022-04-27] MEDS ORDERED: Azithromycin 500 MG in Sodium Chloride 0.9% 250 ML IV ONE (22:37)
[2022-04-27] MEDS ORDERED: Apixaban 5 MG Tab PO ONE (22:37)
== END 2022-04-27 23:15 ==
LOC: JD.ED 17:26
DX: J18.9 Pneumonia, unspecified organism (principal); I26.99 Other pulmonary embolism without acute cor pulmonale; Z88.8 Allergy status to other drugs, medicaments and biological substances; Z88.0 Allergy status to penicillin; Z79.899 Other long term (current) drug therapy; Z86.16 Personal history of COVID-19; Z90.49 Acquired absence of other specified parts of digestive tract
CPT/HCPCS: 36415; 71046; 71275; 80053; 81001; 83605; 83735; 85025; 85379; 86140; 87040; 96365; 96375; 99285; A9270; J0456; J0696; J3490; J7050; Q9967; 99284

== ENCOUNTER 2022-07-29 08:33 | Emergency (ER) | payer MEDICARE, BC ==
[2022-07-29] MEDS ORDERED: Sodium Chloride 0.9% 10 ML Syringe FLUSH PRN (09:37)
[2022-07-29] MEDS ORDERED: Albuterol/Ipratropium 3.0-0.5 MG/3 ML Neb Soln NEB ONE (09:37)
[2022-07-29 11:02] LABS: CORONAVIRUS COVID-19 NAA NEGATIVE (NEGATIVE)
[2022-07-29] MEDS ORDERED: cefTRIAXone 1 GM in Sodium Chloride 0.9% 100 ML IV ONE (12:46)
[2022-07-29 19:50] VITALS: BP 117/75; PULSE 82
== END 2022-07-29 13:50 | disposition home or self-care (01) ==
LOC: JD.ED 08:33
DX: J18.9 Pneumonia, unspecified organism (principal); M10.9 Gout, unspecified; Z87.891 Personal history of nicotine dependence; Z88.8 Allergy status to other drugs, medicaments and biological substances; Z88.0 Allergy status to penicillin; Z79.899 Other long term (current) drug therapy; Z20.822 Contact with and (suspected) exposure to COVID-19
CPT/HCPCS: 0241U; 36415; 71046; 80053; 85025; 86140; 96365; 99285; J0696; J7620-GY

== ENCOUNTER 2022-08-02 14:40 | Inpatient (IN) | payer MEDICARE, BC ==
[2022-08-02] MEDS ORDERED: Sodium Chloride 0.9% 10 ML Syringe FLUSH PRN (15:17)
[2022-08-02] MEDS ORDERED: Piperacillin/Tazobactam 4.5 GM in Sodium Chloride 0.9% 100 ML IV ONE (15:23)
[2022-08-02] MEDS ORDERED: Albuterol/Ipratropium 3.0-0.5 MG/3 ML Neb Soln NEB ONE (16:29)
[2022-08-02] MEDS ORDERED: Lidocaine 1% 10 ML MDV ONE (17:15)
[2022-08-02] MEDS ORDERED: Lidocaine 1% 10 ML MDV INJECT ONE (17:20)
[2022-08-02] MEDS ORDERED: Acetaminophen 325 MG Tab PO PRN (20:52)
[2022-08-02] MEDS ORDERED: oxyCODONE 5 MG Tab PO PRN (20:54)
[2022-08-02] MEDS ORDERED: Sodium Chloride 0.9% 1,000 ML IV SCH (21:00)
[2022-08-03] MEDS ORDERED: IBRUTINIB 140 MG PO SCH (09:00)
[2022-08-03] MEDS ORDERED: Gabapentin 300 MG Cap PO SCH (09:00)
[2022-08-03] MEDS ORDERED: Allopurinol 100 MG Tab PO SCH (09:00)
[2022-08-03] MEDS: Citalopram 20 MG Tab PO SCH (09:42)
[2022-08-03] MEDS: Pantoprazole 40 MG Tab.CR PO SCH (09:42)
[2022-08-03] MEDS: Allopurinol 100 MG Tab PO SCH (09:42)
[2022-08-03] MEDS: Gabapentin 300 MG Cap PO SCH (09:42)
[2022-08-03] MEDS ORDERED: Lidocaine 1% 10 ML MDV INJECT ONE (13:15)
[2022-08-03] MEDS ORDERED: Sodium Chloride 0.9% 1,000 ML IV ONE (13:45)
[2022-08-03] MEDS ORDERED: IBRUTINIB 420 MG PO SCH (15:00)
[2022-08-03] MEDS ORDERED: Albuterol 6.7 GM Inhaler INH PRN (19:49)
[2022-08-04] MEDS ORDERED: Levothyroxine 50 MCG Tab PO SCH (06:00)
[2022-08-04] MEDS ORDERED: Potassium Chloride 20 MEQ Tab.ER PO ONE (06:16)
[2022-08-04] MEDS: Pantoprazole 40 MG Tab.CR PO SCH (09:06)
[2022-08-04] MEDS: Allopurinol 100 MG Tab PO SCH (09:08)
[2022-08-04] MEDS: Citalopram 20 MG Tab PO SCH (09:09)
[2022-08-04] MEDS: Gabapentin 300 MG Cap PO SCH (09:09)
[2022-08-04 09:33] VITALS: BP 114/75; PULSE 80
== END 2022-08-04 13:20 | disposition home or self-care (01) | DRG 186 ==
LOC: JD.ED 14:40 → JD.MS 19:44 → OBSVTOIN 08-03 07:53
PROVIDERS: ADMIT Emergency Medicine; ATTEND Internal Medicine
PROC: 0W9B3ZZ Drainage of Left Pleural Cavity, Percutaneous Approach (ICD-10-PCS; principal; 2022-08-02)
PROC: 0W9B3ZZ Drainage of Left Pleural Cavity, Percutaneous Approach (ICD-10-PCS; 2022-08-04)
DX: J94.2 Hemothorax (principal); J96.21 Acute and chronic respiratory failure with hypoxia; C34.32 Malignant neoplasm of lower lobe, left bronchus or lung; C85.90 Non-Hodgkin lymphoma, unspecified, unspecified site; C91.10 Chronic lymphocytic leukemia of B-cell type not having achieved remission; N17.9 Acute kidney failure, unspecified; G47.30 Sleep apnea, unspecified; M19.90 Unspecified osteoarthritis, unspecified site; F32.A Depression, unspecified; J91.0 Malignant pleural effusion; N18.9 Chronic kidney disease, unspecified; E11.22 Type 2 diabetes mellitus with diabetic chronic kidney disease; Z86.718 Personal history of other venous thrombosis and embolism; Z86.711 Personal history of pulmonary embolism; J43.2 Centrilobular emphysema; Z86.16 Personal history of COVID-19; Z85.46 Personal history of malignant neoplasm of prostate; Z85.89 Personal history of malignant neoplasm of other organs and systems; Z88.0 Allergy status to penicillin; Z88.8 Allergy status to other drugs, medicaments and biological substances; Z79.01 Long term (current) use of anticoagulants; Z79.84 Long term (current) use of oral hypoglycemic drugs; Z79.890 Hormone replacement therapy; Z79.899 Other long term (current) drug therapy; Z99.81 Dependence on supplemental oxygen; Z87.891 Personal history of nicotine dependence
CPT/HCPCS: 32554; 36415 ×2; 71045; 71250; 80053 ×2; 83605; 83986; 85025; 85027; 86140; 87040 ×2; 87070; 87205; 93005; 94640; 96365; 99285; J2543; J3490; J7030; 80048; 82947; 83615; 86850; 86900; 86901; 87641; 94761; A9270-GY; J7620-GY

== ENCOUNTER 2022-08-22 19:08 | Emergency (ER) | payer MEDICARE, BC ==
[2022-08-22 20:46] LABS: CORONAVIRUS COVID-19 NAA NEGATIVE (NEGATIVE)
[2022-08-22 23:47] VITALS: BP 107/65; PULSE 90
== END 2022-08-22 23:40 | disposition home or self-care (01) ==
LOC: JD.ED 19:08
DX: J91.0 Malignant pleural effusion (principal); Z88.0 Allergy status to penicillin; Z91.048 Other nonmedicinal substance allergy status; Z79.899 Other long term (current) drug therapy; Z79.84 Long term (current) use of oral hypoglycemic drugs; Z86.16 Personal history of COVID-19; Z90.49 Acquired absence of other specified parts of digestive tract; Z87.891 Personal history of nicotine dependence; Z20.822 Contact with and (suspected) exposure to COVID-19
CPT/HCPCS: 0241U; 36415; 71046; 71046-26; 80053; 83605; 83880; 84484; 85007; 85027; 85379; 85610; 85730; 87040; 99285

== ENCOUNTER 2022-09-05 08:14 | Inpatient (IN) | payer MEDICARE, BC ==
[2022-09-05] MEDS ORDERED: Sodium Chloride 0.9% 1,000 ML IV SCH (08:45)
[2022-09-05] MEDS ORDERED: Sodium Chloride 0.9% 1,000 ML IV ONE (10:37)
[2022-09-05] MEDS ORDERED: Furosemide 20 MG/2 ML VIAL IVPUSH ONE ×2 (12:17→15:33)
[2022-09-05] MEDS ORDERED: Vancomycin 2 GM in Sodium Chloride 0.9% 500 ML IV ONE (13:06)
[2022-09-05] MEDS ORDERED: diphenhydrAMINE 50 MG/ML SDV IVPUSH ONE (14:14)
[2022-09-05] MEDS ORDERED: Norepinephrine 4 MG in Dextrose 5% in Water 246 ML IV SCH ×2 (14:15)
[2022-09-05] MEDS ORDERED: Piperacillin/Tazobactam 4.5 GM in Sodium Chloride 0.9% 100 ML IV ONE (14:15)
[2022-09-05] MEDS ORDERED: Sodium Chloride 0.9% 100 ML IV SCH (16:30)
[2022-09-05] MEDS ORDERED: Temazepam 15 MG Cap PO PRN (20:03)
[2022-09-05] MEDS ORDERED: Sodium Chloride 0.9% 100 ML ONE (20:20)
[2022-09-05] MEDS: Piperacillin/Tazobactam 4.5 GM in Sodium Chloride 0.9% 100 ML IV SCH (22:49)
[2022-09-06 05:32] VITALS: BP 89/63; PULSE 115
[2022-09-06] MEDS ORDERED: Atropine 0.1 MG/ML 10 ML Syringe IVPUSH PRN (05:55)
[2022-09-06] MEDS ORDERED: Morphine 2 MG/ML SYRINGE IVPUSH PRN (06:00)
[2022-09-06] MEDS ORDERED: Levothyroxine 50 MCG Tab PO SCH (06:00)
[2022-09-06] MEDS ORDERED: Morphine 4 MG/ML Syringe ONE (06:06)
[2022-09-06] MEDS ORDERED: Atropine 0.1 MG/ML 10 ML Syringe ONE (06:06)
[2022-09-06 06:44] LABS: ESTIMATED GFR 41 mL/min (>60)
[2022-09-06] MEDS: Piperacillin/Tazobactam 4.5 GM in Sodium Chloride 0.9% 100 ML IV SCH (07:03)
[2022-09-06] MEDS ORDERED: Pantoprazole 40 MG Tab.CR PO SCH (09:00)
== END 2022-09-06 08:26 | disposition expired | DRG 871 ==
LOC: JD.ED 08:14 → JD.ICU 13:20
PROVIDERS: ADMIT Pediatrics; ATTEND Pediatrics
PROC: 30233N1 Transfusion of Nonautologous Red Blood Cells into Peripheral Vein, Percutaneous Approach (ICD-10-PCS; principal; 2022-09-05)
PROC: 5A09357 Assistance with Respiratory Ventilation, Less than 24 Consecutive Hours, Continuous Positive Airway Pressure (ICD-10-PCS; 2022-09-05)
PROC: 30233R1 Transfusion of Nonautologous Platelets into Peripheral Vein, Percutaneous Approach (ICD-10-PCS; 2022-09-05)
PROC: 3E03329 Introduction of Other Anti-infective into Peripheral Vein, Percutaneous Approach (ICD-10-PCS; 2022-09-05)
DX: A41.9 Sepsis, unspecified organism (principal); D61.810 Antineoplastic chemotherapy induced pancytopenia; J15.3 Pneumonia due to streptococcus, group B; C34.32 Malignant neoplasm of lower lobe, left bronchus or lung; J91.0 Malignant pleural effusion; C91.10 Chronic lymphocytic leukemia of B-cell type not having achieved remission; R04.89 Hemorrhage from other sites in respiratory passages; T45.1X5A Adverse effect of antineoplastic and immunosuppressive drugs, initial encounter; R04.0 Epistaxis; I95.9 Hypotension, unspecified; H54.7 Unspecified visual loss; I10 Essential (primary) hypertension; G47.30 Sleep apnea, unspecified; M10.9 Gout, unspecified; J43.2 Centrilobular emphysema; M19.90 Unspecified osteoarthritis, unspecified site; F32.A Depression, unspecified; E03.9 Hypothyroidism, unspecified; E11.9 Type 2 diabetes mellitus without complications; Z85.72 Personal history of non-Hodgkin lymphomas; Z85.46 Personal history of malignant neoplasm of prostate; Z86.16 Personal history of COVID-19; Z90.89 Acquired absence of other organs; Z88.0 Allergy status to penicillin; Z88.8 Allergy status to other drugs, medicaments and biological substances; Z79.890 Hormone replacement therapy; Z79.899 Other long term (current) drug therapy; Z79.84 Long term (current) use of oral hypoglycemic drugs; Z86.711 Personal history of pulmonary embolism; Z79.01 Long term (current) use of anticoagulants; Z87.01 Personal history of pneumonia (recurrent); Z86.010 Personal history of colon polyps; Z90.49 Acquired absence of other specified parts of digestive tract; Z87.891 Personal history of nicotine dependence; Z98.41 Cataract extraction status, right eye; Z98.890 Other specified postprocedural states; Z89.022 Acquired absence of left finger(s)
CPT/HCPCS: 36415; 36430; 71045; 71045-26; 80053; 82947; 83605; 83735; 84484; 85025; 85610; 85730; 86140; 86850; 86900; 86901; 86922; 87040; 87077; 87154; 87186; 93005; 94660; 96361; 96374; 99285-25; A9270-GY; J0461; J1200; J1940; J2270; J2543; J3370; J7030; J7040; P9016; P9034